=== PATIENT | male | born 1995 | race Caucasian/White ===

== ENCOUNTER 2021-10-12 10:34 | Emergency (ER) | payer SELFPAY ==
[~2021-10-12] VITALS: Ht 170.2 cm; Wt 69.0 kg
[2021-10-12] MEDS ORDERED: ONDANSETRON HCL 4MG/2ML INJ IV ONE (11:00)
[2021-10-12 11:15] LABS: BASOPHILS % 1.2 % (0.0-2.0); EOSINOPHILS % 1.2 % (0.0-5.0); HEMATOCRIT. 40.7 % (42.0-52.0); HEMOGLOBIN. 14.2 g/dL (14.0-18.0); LYMPHOCYTES % 22.9 % (20.0-50.0); MEAN CORPUSCULAR HEMOGLOBIN 30.4 pg (28.0-32.0); MEAN CORPUSCULAR VOLUME 87.4 fL (80.0-94.0); MEAN PLATELET VOLUME 8.2 fl (7.4-10.4); MONOCYTES % 6.9 % (2.0-8.0); NEUTROPHILS % 67.8 % (40.0-76.0); PLATELET 355 x1000/uL (130-400); RED BLOOD CELL COUNT 4.66 mill/uL (4.7-6.1); RED CELL DISTRIBUTION WIDTH 13.5 % (11.6-14.6)
[2021-10-12 11:22] LABS: CHLORIDE 106 mEq/L (98-107)
[2021-10-12] MEDS ORDERED: NALO4SPR BOTHNSTRLS (11:36)
[2021-10-12 12:21] LABS: *AMPHETAMINES SCREEN URINE PRESUMTIVE POSITIVE (NEGATIVE); *BARBITURATES SCREEN URINE NEGATIVE (NEGATIVE); *BENZODIAZEPINES SCREEN URINE NEGATIVE (NEGATIVE); CANNABINOID URINE SCREEN PRESUMTIVE POSITIVE (NEGATIVE); METHADONE URINE SCREEN NEGATIVE (NEGATIVE); OPIATES URINE SCREEN PRESUMTIVE POSITIVE (NEGATIVE); PHENCYCLIDINE URINE SCREEN NEGATIVE (NEGATIVE)
[2021-10-12 12:22] LABS: *COCAINE SCREEN URINE NEGATIVE (NEGATIVE)
[2021-10-12 13:45] VITALS: BP 121/99
== END 2021-10-12 14:03 | disposition home or self-care (01) ==
LOC: EDBD 10:34 → ER 10:34
DX: F11.10 Opioid abuse, uncomplicated (principal)
CPT/HCPCS: 36415; 80053; 80305; 85025; 93005; 96374; 99284; J2405